=== PATIENT | male | born 1955 | race Caucasian/White ===

== ENCOUNTER 2019-04-26 09:10 | Emergency (ER) | payer OTHER ==
[2019-04-26 09:22] VITALS: BP 155/109
--- NOTE | 2019-04-26 09:36 | ED Physician Documentation ---
PD HPI HEAD INJURY - Stated complaint Stated Complaint: FACIAL LAC - Chief complaint Chief Complaint: Wound - History obtained from History obtained from: Patient - History of Present Illness Mechanism of head injury: Fell (he was walking in [place] and his dog stopped suddenly, so patient jumped over it, falling forward. Struck fact into small branches with lac at medial upper eyelid. Did not impact head per se. Has lac and is concerned about eye. Did not feel like eye ball injury itself.) Where head injury occurred: Other (trail in [place]) Timing - onset: Yesterday Location of injury: Front (left medial upper eyelid) Quality of pain: Aching Associated symptoms: Other (no visual change.). No: LOC, AMS, Amnesia, Nausea / vomiting, Neck pain Contributing factors: Anticoagulated. No: Intoxicated Similar symptoms before: Has not had sx before Recently seen: Not recently seen Review of Systems Eyes: denies: Loss of vision, Decreased vision, Photophobia, Discharge Neurologic: denies: Altered mental status, Headache PD PAST MEDICAL HISTORY - Past Medical History Cardiovascular: Valve disorder Respiratory: None Neuro: None Endocrine/Autoimmune: None - Past Surgical History Cardiovascular: Valve replacement - Present Medications Home Medications: Ambulatory Orders Medication Instructions Recorded Confirmed Tobramycin [Tobrex] 1 applic OP QID #3.5 oint...g. 04/26/19 - Allergies Allergies/Adverse Reactions: Allergies Allergy/AdvReac Type Severity Reaction Status Date / Time erythromycin base Allergy Unknown Verified 04/26/19 09:19 Penicillins Allergy Unknown Verified 04/26/19 09:19 PD ED PE NORMAL - Vitals Vital signs reviewed: Yes - General General: Alert and oriented X 3, No acute distress, Well developed/nourished - HEENT HEENT: PERRL, EOMI, Other (medial upper left eyelid with small laceration above the canthus area. No involvement of the lacrimal duct area. Eye not injured. No subconjunctival hemorrhage. anterior chamber normal. ) - Neck Neck: Supple, no meningeal sign, No adenopathy - Cardiac Cardiac: RRR, No murmur - Respiratory Respiratory: Clear bilaterally - Derm Derm: Normal color, Warm and dry - Neuro Neuro: Alert and oriented X 3, No motor deficit, Normal speech Results - Vitals Vitals: Vital Signs - 24 hr 04/26/19 09:15 Temperature 36.5 C Heart Rate 77 Respiratory 16 Rate Blood Pressure 155/109 H O2 Saturation 95 Oxygen O2 Source Room air PD MEDICAL DECISION MAKING - ED course Complexity details: considered differential (had more of a jab with small stick as he fell, and not impact per se, so did not feel it was at risk of ICH as not impact impact per se. The lac is not at lacrimal duct nor medial canthus, but a little higher in corner of eyelid. No FB. ), d/w patient Departure - Departure Disposition: 01 Home, Self Care Clinical Impression: Fall from slip, trip, or stumble Qualifiers: Encounter type: initial encounter Qualified Code(s): W01.0XXA - Fall on same level from slipping, tripping and stumbling without subsequent striking against object, initial encounter Laceration of periorbital area Qualifiers: Encounter type: initial encounter Qualified Code(s): S01.81XA - Laceration without foreign body of other part of head, initial encounter Condition: Stable Record reviewed to determine appropriate education?: Yes Prescriptions: Tobramycin [Tobrex] 1 applic OP QID #3.5 oint...g. Comments: Use antibiotic eye ointment to the laceration area 3-4 times a day. You do not have to put it in the eye itself but we are using the ophthalmic ointment just because it is close enough to the eye. Watch for signs of infection. The does not appear to be any injury to the lacrimal duct area itself. You are given a tetanus booster as well. Recheck of signs of infection. Discharge Date/Time: 04/26/19 10:33
[2019-04-26] MEDS ORDERED: cephALEXin 250 MG CAPSULE PO STA (09:57)
[2019-04-26] MEDS ORDERED: TETANUS/DIPHTHERIA/PERTUSSIS 0.5 ML SYRINGE IM ONE (09:57)
[2019-04-26] MEDS ORDERED: BACITRACIN/POLYMYXIN OPHTH OINT 3.5 GM LEFTEYE STA (09:57)
[2019-04-26] MEDS ORDERED: TOBRAMYCIN 0.3% OPHTH DROPS 5 ML LEFTEYE STA (10:22)
== END 2019-04-26 10:33 | disposition home or self-care (01) ==
LOC: ED 09:10
DX: S01.112A Laceration without foreign body of left eyelid and periocular area, initial encounter (principal); W01.198A Fall on same level from slipping, tripping and stumbling with subsequent striking against other object, initial encounter; Y93.K1 Activity, walking an animal; Y92.821 Forest as the place of occurrence of the external cause; Z23 Encounter for immunization; Z95.2 Presence of prosthetic heart valve
CPT/HCPCS: 90471; 90715; 99283; A9270

== ENCOUNTER 2021-03-01 21:34 | Emergency (ER) | payer OTHER ==
[2021-03-01 21:57] LABS: BASOPHILS # (AUTO) 0.1 10^3/uL (0.0-0.1); BASOPHILS % (AUTO) 1.1 %; EOSINOPHILS # (AUTO) 0.2 10^3/uL (0.0-0.7); EOSINOPHILS % (AUTO) 3.6 %; HCT - HEMATOCRIT 42.3 % (42.0-52.0); HGB - HEMOGLOBIN 14.7 g/dL (14.0-18.0); LYMPHOCYTES # (AUTO) 1.8 10^3/uL (1.5-3.5); LYMPHOCYTES % (AUTO) 30.1 %; MEAN CORPUSCULAR HEMOGLOBIN 31.1 pg (27.0-31.0); MEAN CORPUSCULAR HGB CONC 34.8 g/dL (32.0-36.0); MEAN CORPUSCULAR VOLUME 89.4 fL (80.0-94.0); MEAN PLATELET VOLUME 8.7 fL (7.4-11.4); MONOCYTES # (AUTO) 0.6 10^3/uL (0.0-1.0); NEUTROPHILS # (AUTO) 3.4 10^3/uL (1.5-6.6); NEUTROPHILS % (AUTO) 54.9 %; PLT - PLATELET COUNT 172 10^3/uL (130-450); RED BLOOD COUNT 4.73 10^6/uL (4.70-6.10); RED CELL DISTRIBUTION WIDTH 13.8 % (12.0-15.0); WHITE BLOOD COUNT 6.1 x10^3/uL (4.8-10.8)
[2021-03-01 22:10] LABS: ALBUMIN 4.6 g/dL (3.2-5.5); ALBUMIN/GLOBULIN RATIO 1.6 (1.0-2.2); BILIRUBIN,TOTAL 1.9 mg/dL (0.2-1.0); CALCIUM 9.2 mg/dL (8.5-10.3); CREATININE 1.1 mg/dL (0.6-1.2); POTASSIUM 3.9 mmol/L (3.5-5.0); TOTAL PROTEIN 7.5 g/dL (6.7-8.2)
[2021-03-01 22:19] LABS: INR 1.4 (0.8-1.2); PT - PROTHROMBIN TIME 15.4 secs (9.9-12.6)
--- NOTE | 2021-03-01 23:29 | ED Physician Documentation ---
History of Present Illness - Stated complaint Stated Complaint: LT SHOULDER PX,INDIGESTION - Chief complaint Chief Complaint: Ext Problem - History obtained from History obtained from: Patient - History of Present Illness Timing: Enter time (21:00), Today Pain level now: 4 Improved by: resolved spontaneously but without apparent ameliorating factors Worsened by: no exacerbating factors - Additonal information Additional information: c/o sudden onset left shoulder pain at 9 PM tonight while getting into his truck, associated with eructation and epigastric bloating sensation. Symptoms resolved after approximately 1 hour, he is asymptomatic at the time of this evaluation. He denies having any chest pain per se. He says he had a negative stress test approximately 15 years ago . Review of Systems Constitutional: denies: Fever, Chills, Sweats Cardiac: reports: Reviewed and negative Respiratory: reports: Reviewed and negative GI: reports: Abdominal Pain (epigastric bloating). denies: Nausea, Vomiting, Constipation, Diarrhea : denies: Dysuria, Frequency Skin: denies: Rash Musculoskeletal: reports: Joint pain (left shoulder). denies: Neck pain, Back pain, Joint swelling Neurologic: denies: Generalized weakness, Focal weakness, Numbness, Headache PD PAST MEDICAL HISTORY - Past Medical History Cardiovascular: Valve disorder Respiratory: None Neuro: None Endocrine/Autoimmune: None - Past Surgical History Cardiovascular: Valve replacement - Present Medications Home Medications: Ambulatory Orders Medication Instructions Recorded Confirmed Tobramycin [Tobrex] 1 applic OP QID #3.5 oint...g. 04/26/19 - Allergies Allergies/Adverse Reactions: Allergies Allergy/AdvReac Type Severity Reaction Status Date / Time erythromycin base Allergy Rash Verified 03/01/21 21:44 Penicillins Allergy Rash Verified 03/01/21 21:44 PD ED PE NORMAL - Vitals Vital signs reviewed: Yes - General General: Alert and oriented X 3, No acute distress, Well developed/nourished - Neck Neck: Supple, no meningeal sign - Cardiac Cardiac: RRR - Respiratory Respiratory: No respiratory distress, Clear bilaterally - Abdomen Abdomen: Normal bowel sounds, Soft, Non tender, Non distended - Back Back: No CVA TTP - Derm Derm: Normal color, Warm and dry - Extremities Extremities: No edema PD ED PE EXPANDED - Cardiac Cardiac: Regular Rhythm, Other (S2 click right 2nd ICS) Results - Vitals Vitals: Vital Signs - 24 hr 03/01/21 23:46 Temperature 36.9 C Heart Rate 63 Respiratory 18 Rate Blood Pressure 132/82 H O2 Saturation 97 Oxygen O2 Source Room air - EKG (time done) No standard instances Rate: Rate (enter#) (70) Rhythm: NSR [place]: Normal Intervals: Normal ME, 2nd degree AVB type 1 Ischemia: Normal ST segments, T wave inversion (I, aVL) - Labs Labs: Laboratory Tests 03/01/21 03/01/21 03/01/21 21:49 21:49 21:49 WBC 6.1 RBC 4.73 Hgb 14.7 Hct 42.3 MCV 89.4 MCH 31.1 H MCHC 34.8 RDW 13.8 Plt Count 172 MPV 8.7 Neut # (Auto) 3.4 Lymph # (Auto) 1.8 Dickinson # (Auto) 0.6 Eos # (Auto) 0.2 Baso # (Auto) 0.1 Absolute Nucleated RBC 0.00 Nucleated RBC % 0.0 PT 15.4 H INR 1.4 H Sodium 139 Potassium 3.9 Chloride 104 Carbon Dioxide 26 Anion Gap 9.0 BUN 17 Creatinine 1.1 Estimated GFR (MDRD) 68 L Glucose 96 Calcium 9.2 Total Bilirubin 1.9 H AST 29 ALT 21 Alkaline Phosphatase 69 Troponin I High Sens Total Protein 7.5 Albumin 4.6 Globulin 2.9 Albumin/Globulin Ratio 1.6 Lipase 38 03/01/21 21:49 WBC RBC Hgb Hct MCV MCH MCHC RDW Plt Count MPV Neut # (Auto) Lymph # (Auto) Dickinson # (Auto) Eos # (Auto) Baso # (Auto) Absolute Nucleated RBC Nucleated RBC % PT INR Sodium Potassium Chloride Carbon Dioxide Anion Gap BUN Creatinine Estimated GFR (MDRD) Glucose Calcium Total Bilirubin AST ALT Alkaline Phosphatase Troponin I High Sens 8.0 Total Protein Albumin Globulin Albumin/Globulin Ratio Lipase - Rads (name of study) chest xray Radiology: Prelim report reviewed, See rad report PD MEDICAL DECISION MAKING - ED course Complexity details: reviewed results, re-evaluated patient, considered differential, d/w patient ED course: presents with left shoulder pain and epigastric bloating discomfort, resolved after approximately 1 hour. No injury, pain was not worse with movement nor palpation. Reassuring tests tonight including cxr, EKG, and blood tests (including troponin). Etiology of symptoms unclear at this time, further emergent testing is not indicated but I discussed with him the concern that angina can sometimes manifest as shoulder pain with GI symptoms without ashley chest pain. I encouraged him to return if symptoms recur, but to follow up with his primary care provider even if he feels well, as further testing such as stress test might be indicated at the discretion of his primary care provider Departure - Departure Disposition: 01 Home, Self Care Clinical Impression: Shoulder pain, left Qualifiers: Chronicity: acute Qualified Code(s): M25.512 - Pain in left shoulder Condition: Good Instructions: ED Chest Pain Atypical Unkn Cause Discharge Date/Time: 03/01/21 23:56
[2021-03-01 23:47] VITALS: BP 132/82
--- NOTE | 2021-03-02 10:08 | XRAY Report ---
PROCEDURE: Chest 1 View X-Ray INDICATIONS: Chest Pain TECHNIQUE: One view of the chest was acquired. COMPARISON: None FINDINGS: Surgical changes and devices: Sternal wires are present. Lungs and pleura: No pleural effusions or pneumothorax. Lungs are clear. Mediastinum: Mediastinal contours appear normal. Heart size is mildly enlarged. Bones and chest wall: No suspicious bony lesions. Overlying soft tissues appear unremarkable. IMPRESSION: No acute pulmonary process. The above findings are concordant with preliminary report. Reviewed by: Gypsy Zamora MD on 03/02/2021 10:07 AM PDT Approved by: Gypsy Zamora MD on 03/02/2021 10:07 AM PDT Station ID: [id number]
== END 2021-03-01 23:56 | disposition home or self-care (01) ==
LOC: ED 21:34
DX: Z95.2 Presence of prosthetic heart valve (principal); M25.512 Pain in left shoulder; R10.13 Epigastric pain
CPT/HCPCS: 36415; 80053; 83690; 84484; 85025; 85610; 93005; 99284

== ENCOUNTER 2023-08-11 14:06 | Outpatient (CLI) | payer MEDICARE ==
[2023-08-11 20:02] LABS: BASOPHILS % (AUTO) 0.9 %; EOSINOPHILS # (AUTO) 0.1 10^3/uL (0.0-0.7); EOSINOPHILS % (AUTO) 2.9 %; HCT - HEMATOCRIT 44.7 % (42.0-52.0); HGB - HEMOGLOBIN 14.5 g/dL (14.0-18.0); LYMPHOCYTES # (AUTO) 0.6 10^3/uL (1.5-3.5); LYMPHOCYTES % (AUTO) 12.6 %; MEAN CORPUSCULAR HEMOGLOBIN 30.2 pg (27.0-31.0); MEAN CORPUSCULAR HGB CONC 32.4 g/dL (32.0-36.0); MEAN CORPUSCULAR VOLUME 93.1 fL (80.0-94.0); MEAN PLATELET VOLUME 9.7 fL (7.4-11.4); MONOCYTES # (AUTO) 0.4 10^3/uL (0.0-1.0); MONOCYTES % (AUTO) 9.3 %; NEUTROPHILS # (AUTO) 3.3 10^3/uL (1.5-6.6); NEUTROPHILS % (AUTO) 74.1 %; PLT - PLATELET COUNT 215 10^3/uL (130-450); RED CELL DISTRIBUTION WIDTH 13.1 % (12.0-15.0); WHITE BLOOD COUNT 4.4 x10^3/uL (4.8-10.8)
== END 2023-08-11 14:07 | disposition home or self-care (01) ==
LOC: LAB.S 14:06
PROVIDERS: ATTEND Physician Assistant Medical
DX: R10.13 Epigastric pain (principal); R10.84 Generalized abdominal pain
CPT/HCPCS: 36415; 85025

== ENCOUNTER 2023-11-05 19:19 | Emergency (ER) | payer MEDICARE ==
[2023-11-05 19:33] VITALS: BP 130/72; O2SAT 98
--- NOTE | 2023-11-05 19:35 | ED Physician Documentation ---
History of Present Illness - Stated complaint Stated Complaint: NOSE BLEED - Chief complaint Chief Complaint: Heent - History obtained from History obtained from: Patient - Additonal information Additional information: 68-year-old gentleman on warfarin for prosthetic heart valve, he occasionally gets nosebleeds but usually they stopped pretty quickly. About 2 hours ago now he developed a profuse left-sided nosebleed without trauma. He thinks it is slowing down. He had his INR checked about a week ago and he says it was 2.3. PD PAST MEDICAL HISTORY - Past Medical History Past Medical History: No Cardiovascular: Valve disorder Respiratory: None Neuro: None Endocrine/Autoimmune: None Derm: Psoriasis - Past Surgical History Past Surgical History: Yes General: Cholecystectomy Cardiovascular: Valve replacement - Present Medications Home Medications: Ambulatory Orders Medication Instructions Recorded Confirmed Tobramycin [Tobrex] 1 applic OP QID #3.5 oint...g. 04/26/19 - Allergies Allergies/Adverse Reactions: Allergies Allergy/AdvReac Type Severity Reaction Status Date / Time erythromycin base Allergy Rash Verified 11/05/23 19:28 Penicillins Allergy Rash Verified 11/05/23 19:28 - Social History Does the pt smoke?: No Smoking Status: Never smoker Does the pt drink ETOH?: Yes ETOH Use: Beer Does the pt have substance abuse?: No PD ED PE NORMAL - Vitals Vital signs reviewed: Yes - General General: Alert and oriented X 3 - HEENT HEENT: Other (Raw medial nasal mucosa, but no active bleeding or obvious spot that would need cauterization.) - Neuro Neuro: Alert and oriented X 3 Results - Vitals Vitals: Vital Signs - 24 hr 11/05/23 19:23 Temperature 36.3 C L Heart Rate 59 L Respiratory 18 Rate Blood Pressure 130/72 O2 Saturation 98 Oxygen O2 Source Room air - Labs Labs: Laboratory Tests 11/05/23 19:38 INR (Fingerstick) 1.8 H Procedures - Epistaxis - Minor Site: Left, Anterior Preparation: Afrin, Clamp / pressure applied Treatment: None needed - resolved PD Medical Decision Making - ED course ED course: 68-year-old gentleman with history of prostatic heart valve on warfarin presents with a nosebleed. On arrival and on my evaluation he had a clamp on for some time and it was actually stopped on removal of the clamp. I placed him oxymetazoline in and reexamined and did not see any spot that would need cautery. His INR today is 1.8. He states to me that because of the particulars of his heart valve his goal INR is actually just 1.5-2.5. Departure - Departure Disposition: 01 Home, Self Care Clinical Impression: Epistaxis Condition: Good Record reviewed to determine appropriate education?: Yes Instructions: ED Nosebleed Comments: Your INR today was 1.8. Return for new or worsening symptoms. For any recurrent nosebleed you can use 2 sprays of the oxymetazoline/generic Afrin and then the nasal clamp for 10 to 20 minutes. Return if that does not resolve the nosebleed. Forms: PCP List
[2023-11-05] MEDS: SILVER NITRATE APPLICATOR TOP STA (19:46)
[2023-11-05] MEDS: OXYMETAZOLINE HCL 100 SPRAYS BOTTLE NAS STA (19:46)
== END 2023-11-05 20:07 | disposition home or self-care (01) ==
LOC: ED 19:19
DX: R04.0 Epistaxis (principal); Z95.2 Presence of prosthetic heart valve; Z79.01 Long term (current) use of anticoagulants
CPT/HCPCS: 30901; 85610; 99283; A9270

== ENCOUNTER 2024-02-17 08:00 | Outpatient (CLI) | payer MEDICARE ==
--- NOTE | 2024-02-17 16:49 | XRAY Report ---
PROCEDURE: Hip w/Pelvis 2-3V LT INDICATIONS: LEFT HIP PAIN TECHNIQUE: 2 views of the hip were acquired. COMPARISON: None. FINDINGS: Bones: No fractures or dislocations. Mild bilateral femoroacetabular joint space narrowing and juxta -articular osteophytosis. No suspicious bony lesions. Soft tissues: No suspicious soft tissue calcifications or masses. IMPRESSION: 1.No acute bony abnormality. If there remains a high clinical concern for fracture, consider cross-se ctional imaging now. If pain persists, consider repeat x-ray in 10-14 days or cross-sectional imaging . 2.Mild bilateral hip osteoarthritis. Reviewed by: Shilpi Diaz MD on 02/17/2024 4:47 PM PDT Approved by: Shilpi Diaz MD on 02/17/2024 4:47 PM PDT Station ID: [id number]
== END 2024-02-17 23:59 | disposition home or self-care (01) ==
LOC: DI.S 08:00
PROVIDERS: ATTEND Registered Nurse
DX: M16.0 Bilateral primary osteoarthritis of hip (principal)

== ENCOUNTER 2024-03-29 07:19 | Outpatient (CLI) | payer MEDICARE ==
[2024-03-29 15:47] LABS: ALBUMIN 4.1 g/dL (3.2-5.5); ALBUMIN/GLOBULIN RATIO 1.9 (1.0-2.2); ALKALINE PHOSPHATASE 51 IU/L (42-121); ALT ALANINE AMINOTRANSFERASE 15 IU/L (10-60); AST ASPARTATE AMINOTRANSFERASE 21 IU/L (10-42); BILIRUBIN,TOTAL 1.4 mg/dL (0.2-1.0); BUN - BLOOD UREA NITROGEN 19 mg/dL (6-20); CALCIUM 9.1 mg/dL (8.5-10.3); CARBON DIOXIDE - CO2 30 mmol/L (21-32); CHLORIDE 107 mmol/L (101-111); CHOL/HDL RATIO 3.1 (<5.0); CHOLESTEROL 131 mg/dL; CREATININE 1.2 mg/dL (0.6-1.3); GFR - MDRD 60 (>89); GLUCOSE 93 mg/dL (74-104); HDL CHOLESTEROL 42 mg/dL; LDL CHOLESTEROL,CALCULATED 69 mg/dL; LDL/HDL RATIO 1.6 (<3.6); POTASSIUM 4.2 mmol/L (3.5-4.5); SODIUM 140 mmol/L (135-145); TOTAL PROTEIN 6.3 g/dL (6.4-8.9); TRIGLYCERIDES 99 mg/dL; VLDL CHOLESTEROL 20 mg/dL
[2024-03-29 19:00] LABS: ESTIMATED AVERAGE GLUCOSE 88 mg/dL (70-100); HEMOGLOBIN A1c% 4.7 % (4.27-6.07)
== END 2024-03-29 07:20 | disposition home or self-care (01) ==
LOC: LAB.S 07:19
PROVIDERS: ATTEND Internal Medicine Cardiovascular Disease
DX: I35.9 Nonrheumatic aortic valve disorder, unspecified (principal); E78.5 Hyperlipidemia, unspecified
CPT/HCPCS: 36415; 80053; 80061; 83036; 83721